=== PATIENT | male | born 1995 | race Caucasian/White ===

== ENCOUNTER 2018-09-26 09:57 | Emergency (ER) | payer MEDICAID, OTHER ==
[2018-09-26] MEDS ORDERED: Magnesium Sulfate 2 GM/NS 0.9% 50 ML BAG ONE (10:21)
[2018-09-26] MEDS ORDERED: Sodium Chloride 0.9% 1,000 ML ONE (10:21)
[2018-09-26] MEDS ORDERED: Prochlorperazine 10 MG/2 ML VIAL ONE (10:21)
--- NOTE | 2018-09-26 11:22 | CT ---
CTA Angio Head W WO Con CT brain without contrast History: Headache Comparison: None. Findings: No acute hemorrhage or infarct. No midline shift or mass effect. Ventricular size and extra -axial normal. The [place] is patent. No stenosis, thrombosis, nor aneurysm formation. No abnormal enhancing ma ss. Posterior circulation is intact. Left P1 is hypoplastic with adequate flow within P2 and P3. Calvarium is intact. Paranasal sinuses and mastoids are clear. Dural venous sinuses are patent. Impression: 1. No acute intracranial abnormality. 2. No [place] stenosis, thrombosis, nor aneurysm formation. No subarachnoid hemorrhage.
[2018-09-26] MEDS ORDERED: Iopamidol 370 76% 100 ML VIAL ONE (18:30)
== END 2018-09-26 12:30 | disposition home or self-care (01) ==
LOC: NAV ERS 09:57
DX: R51 Headache (principal)
CPT/HCPCS: 70496; 96365; 96375; J0780; J3475; J7050; Q9967